=== PATIENT | male | born 1950 | race African-American/Black ===

== ENCOUNTER 2017-09-02 06:29 | Inpatient (IN) | payer MEDICARE ==
[~2017-09-02] VITALS: Ht 188 cm; Wt 83.4 kg
[~2017-09-02 06:29] MED LIST: ASPI1TAB57 PO; ENAL2.5T40 PO; METO25TA3 PO; PLAV75TA29 PO; SIMV40TA PO
[2017-09-02] MEDS ORDERED: METOPROLOL TARTRATE 25 MG TAB PO PRN (07:00)
[2017-09-02] MEDS ORDERED: CHLORHEXIDINE GLUCONATE 2 % 1 PACK (2 CLOTHS) TOPICAL PRN (07:00)
[2017-09-02] MEDS ORDERED: INSULIN HUMAN REGULAR 1,000 UNITS/10 ML VIAL SQ PRN (07:00)
[2017-09-02] MEDS ORDERED: POVIDONE IODINE 5% (ANTISEPSIS KIT) 4 APPLICATIONS EACH NARE PRN (07:00)
[2017-09-02] MEDS ORDERED: SODIUM CHLORID 0.9% 500 ML IV PRN (07:00)
[2017-09-02] MEDS ORDERED: LACTATED RINGER'S 1000 ML IV PRN (07:00)
[2017-09-02] MEDS ORDERED: ceFAZolin 2 GM PREMIX 50 ML IV SCH (07:00)
[2017-09-02] MEDS ORDERED: AMLO10TA2 PO (07:03)
[2017-09-02] MEDS ORDERED: IPRAAER INH (07:03)
[2017-09-02] MEDS ORDERED: IPRASOL INH (07:03)
[2017-09-02] MEDS ORDERED: ATOR40TA16 PO (07:03)
[2017-09-02] MEDS ORDERED: FLUT1INH INH (07:03)
[2017-09-02] MEDS ORDERED: UMEC1AER INH (07:16)
[2017-09-02] MEDS ORDERED: TRIA1SPR5 EACH NARE (07:16)
[2017-09-02 07:32] LABS: PROTHROMBIN TIME - PATIENT 11.3 SEC (9.8-11.6)
[2017-09-02] MEDS ORDERED: ACETAMINOPHEN 1000 MG/100 ML 100 ML IV ONE (07:33)
[2017-09-02] MEDS ORDERED: HYDROmorphone HCL PF 2 MG/ML VIAL ONE (07:33)
[2017-09-02] MEDS ORDERED: MANNITOL INJ 0 ML ONE (10:34)
[2017-09-02] MEDS ORDERED: SUGAMMADEX SODIUM 200 MG/2 ML VIAL IV PUSH ONE ×2 (11:22)
[2017-09-02] MEDS ORDERED: COMBIVENT INH PRN (11:45)
[2017-09-02] MEDS ORDERED: MORPHINE SULFATE 4 MG/ML INJ IV PUSH PRN (11:45)
[2017-09-02] MEDS ORDERED: ONDANSETRON HCL 4 MG/2 ML VIAL IV PUSH PRN (11:45)
[2017-09-02] MEDS ORDERED: LIDOCAINE HCL 1% PF 5 ML SYRINGE OTHER ONE (12:00)
[2017-09-02] MEDS: RESP: ALBUTEROL 2.5 MG/IPRATROPIUM 0.5 MG NEB (SCH) INH ×2 (12:00→21:40)
[2017-09-02] MEDS ORDERED: PHENYLEPH/NS 1000 MCG/10 ML SYR IV ONE (12:00)
[2017-09-02] MEDS ORDERED: SODIUM CHLORIDE 0.9% 20 ML VIAL IV ONE (12:00)
[2017-09-02] MEDS ORDERED: PROPOFOL 200 MG/20 ML AMP IV ONE (12:00)
[2017-09-02] MEDS ORDERED: VECURONIUM BROMIDE 20 MG VIAL IV ONE (12:00)
[2017-09-02] MEDS ORDERED: DEXAMETHASONE SOD PHOS 4 MG/ML VIAL IV ONE (12:00)
[2017-09-02] MEDS ORDERED: ONDANSETRON HCL 4 MG/2 ML VIAL IV PUSH ONE (12:00)
[2017-09-02] MEDS ORDERED: PHENYLEPHRINE HCL 10 MG/ML VIAL IV ONE (12:00)
[2017-09-02] MEDS ORDERED: NORMOSOL R INJ 1,000 ML IV ONE (12:00)
[2017-09-02] MEDS ORDERED: ROCURONIUM INJ 50 MG/5 ML SYRINGE IV PUSH ONE (12:00)
[2017-09-02] MEDS ORDERED: ePHEDrine/NS 25 MG/5 ML SYR IV ONE (12:00)
[2017-09-02] MEDS ORDERED: MIDAZOLAM HCL 2 MG/2 ML VIAL IV ONE (12:00)
[2017-09-02] MEDS ORDERED: DO NOT ADM ANY ANTICOAGULANT DRUGS PRN (13:00)
[2017-09-02 13:13] LABS: AUTOMATED NEUTROPHIL # 8.9 TH/MM3 (1.8-7.7); BASOPHIL % 0.2 % (0.0-2.0); EOSINOPHIL # 0.1 TH/MM3 (0-0.4); EOSINOPHIL % 1.3 % (0.0-4.0); HEMATOCRIT 42.5 % (39.0-51.0); HEMO FLAGS DIFF FINAL; LYMPH % 5.9 % (9.0-44.0); LYMPHOCYTE # 0.6 TH/MM3 (1.0-4.8); MEAN CELL VOLUME 85.8 FL (80.0-100.0); MEAN CORPUSCULAR HEMOGLOBIN 28.1 PG (27.0-34.0); MEAN CORPUSCULAR HGB CONC 32.8 % (32.0-36.0); MONO % 2.4 % (0.0-8.0); NEUT % 90.2 % (16.0-70.0); PLATELET COUNT 166 TH/MM3 (150-450); RED BLOOD COUNT 4.96 MIL/MM3 (4.50-5.90); RED CELL DISTRIBUTION WIDTH 13.8 % (11.6-17.2); WHITE BLOOD COUNT 9.9 TH/MM3 (4.0-11.0)
[2017-09-02] MEDS: SODIUM CHLOR 0.9% 1000 ML INJ 1,000 ML IV SCH ×2 (13:15→20:58)
[2017-09-02 13:33] LABS: BICARBONATE 25.3 MEQ/L (21.0-32.0); POTASSIUM 4.7 MEQ/L (3.5-5.1)
--- NOTE | 2017-09-02 13:39 | MP ---
cc: NAZ HUTTON MD DATE OF SURGERY 09/02/2017 PREOPERATIVE DIAGNOSIS 1. Right upper pole posterior enhancing solid renal mass 2. Lung nodules POSTOPERATIVE DIAGNOSIS 1. Right upper pole posterior enhancing solid renal mass 2. Lung nodules PROCEDURE PERFORMED Right radical robotic nephrectomy. SURGEON Naz Hutton MD ANESTHESIA General COMPLICATIONS None PREOPERATIVE ANTIBIOTICS Ancef 1 grams IV DRAINS A 6-[place] Rose catheter to gravity drainage. SPECIMENS Right kidney for permanent BLOOD LOSS 150 mL FLUIDS One liter of crystalloids DISPOSITION To recovery INDICATIONS The patient is 66-year-old male who was found to have a solid enhancing 2.5 cm right upper pole renal mass. The mass was originally found back in 2011 and has doubled in size over the last couple years. The patient also had some lung nodules as well as a questionable bone lesion, but PET scan confirmed these were not metabolically active. Treatment options were discussed including robotic partial nephrectomy versus radical nephrectomy versus active surveillance versus percutaneous biopsy with cryoablation. The advantages, disadvantages and side effects of each were explained. The patient elected to proceed with robotic partial nephrectomy. In consultation with him, I did explain that due to the location of the tumor being posterior and tucked under his liver, it would be very difficult to remove the tumor and leave the kidney by and may end up losing the entire kidney. Both he and his understood these risks along with the risk of dialysis, renal failure, conversion to open, injury to other organs and they elected to proceed and an informed consent was obtained. DETAILS OF THE PROCEDURE The patient was properly identified, brought back to the operating room, laid supine on the operating table. Proper time-out was performed under the direction of anesthesiology. The patient was then induced under general aesthetic. Preoperatively antibiotics in the form of Ancef two grams IV was given within one hour of the start of the procedure. A Rose catheter was placed under sterile technique. He was then placed in the left lateral decubitus position with the right side up in modified flank position. All pressure points were padded. He was then prepped and draped in a normal sterile surgical fashion. A stab incision was made superior and lateral to the umbilicus and the Veress needle was used to gain access to the intraabdominal cavity. The stab incision was extended approximately 2 cm. Under direct visualization, I then passed the 12 mm long camera port into the intraabdominal cavity. The abdomen was carefully inspected. There was no evidence of any intraabdominal injury and no evidence of bleeding. At this time, I then placed the five remaining ports under direct visualization. This included two 8 mm robotic ports triangulated off of the camera port one handbreadth off the ASIS, the other two fingerbreadths off the subcostal margin. I then placed a 5-mm liver retractor port just in the midline below the xiphoid process. Two 12-mm elementary assistant principal ports were placed as well, one inferior to the umbilicus in the midline and one in between the umbilicus and the liver retractor. Upon placing the port into the intraabdominal cavity, it did go through some tissue that was stuck to the anterior abdominal wall. The camera was then placed in the inferior 12 mm elementary assistant principal port. A laparoscopic retractor was then used to remove this tissue over the port. It appeared to be just some fatty tissue and did not appeared to be mesentery or colon or small intestine. Therefore, I decided to continue with the procedure. The robot arm was then brought in position. I began by taking down the white line of Toldt and reflecting the colon medially to expose the retroperitoneum. The duodenum was then Kocherized. He had very thin tissues inside. Once this was done, this exposed the IVC, however he did have a significantly enlarged liver. Under direct visualization, the liver retractor was placed in the abdominal cavity and locked on the anterior abdominal wall on the side. This mobilized the liver cephalad. There was no evidence of any trauma to the liver by passing the retractor. At this point, I then divided the attachments between the liver and the kidney which help free up the kidney. I was then able to spare the right gonadal vein. I marched up the psoas muscle to the level of the hilum. Both the artery and vein were carefully dissected out circumferentially. I then mobilized the lateral part of the kidney and the superior portion of the kidney. Part of the tumor was visualized. It appeared to be very posterior which corresponded to the CT scan, but also approaching the vessels on the backside. I did not think it was possible to remove the tumor safely without causing significant damage to the renal vessels and possibly compromising margins, therefore, I called out to the and talked to her about the necessity to remove the whole kidney and she agreed. Therefore, the artery and vein were then taken separately with an endovascular stapler. The robotic vascular sealer was then used to remove the upper pole attachments. At this point, the entire kidney was freed except the ureter remained. This was carefully dilated and taken with the robotic vessel sealer. At this point, the kidney was completely mobilized. It was placed in an EndoCatch bag for later removal. The renal fossa including hilum appeared to be dry. The renal peritoneum was dropped down to 7 mmHg. There was no evidence of any bleeding. Three grams of Caro were then placed. At this time, the kidney in the EndoCatch bag was extracted through the right lower quadrant incision. It was closed with a running 1-0 PDS. A second look was performed. There was no evidence of any bleeding within the intraabdominal cavity. The underside of the closing incision was free of bowel. Therefore, all ports were removed under direct visualization. The skin incision was then closed with 4-0 Monocryl. This concluded the procedure. The patient was extubated and sent to recovery in stable condition without immediate complication. He will be transferred to the floor for routine postoperative care. The sponge, needle, and instrument counts were correct at the end of the case. MD MADISYN Mcconnell/LEESA /12:52 PM /1:17 PM
[2017-09-02] MEDS ORDERED: SODIUM CHLORIDE 0.9% INJ 10 ML ONE (14:35)
[2017-09-02] MEDS: PANTOPRAZOLE SODIUM 40 MG VIAL IV PUSH SCH (14:50)
--- NOTE | 2017-09-02 15:37 | PD.CONS ---
HPI Service [facility] Hospitalists Consult Requested By Dr. Ruff Reason for Consult Medical management Primary Care Physician Lucretia Cason MD Diagnoses: (1) Renal mass, right (2) Hypertension (3) Hyperlipidemia (4) Coronary artery disease (5) Acute kidney injury History of Present Illness The patient is a 66-year-old male who had right radical robotic nephrectomy today secondary to a right renal mass. Hospitalist consultation was requested for medical management. The patient reports history of coronary artery disease, hypertension, hyperlipidemia. He states that he feels "pretty good" at this point following surgery. No pain currently. Denies chest pain, dyspnea, nausea, vomiting. Review of Systems Constitutional: DENIES: Fever, Chills, Night Sweats Eyes: DENIES: Blurred vision, Vision loss Ears, nose, mouth, throat: DENIES: Hearing loss Respiratory: DENIES: Cough, Wheezing, Sputum production, Shortness of breath Cardiovascular: DENIES: Chest pain, Palpitations, Dyspnea on Exertion, Lower Extremity Edema Gastrointestinal: DENIES: Abdominal pain, Constipation, Diarrhea, Nausea, Vomiting Genitourinary: DENIES: Urinary frequency, Urinary incontinence, Urgency, Hematuria, Dysuria, Nocturia Musculoskeletal: DENIES: Joint pain, Muscle aches Integumentary: DENIES: Pruritus, Rash Hematologic/lymphatic: DENIES: Bruising Neurologic: DENIES: Headache Past Family Social History Allergies: Coded Allergies: No Known Allergies (Unverified , 07/07/12) Past Medical History Coronary artery disease Hyperlipidemia Hypertension COPD Past Surgical History Cardiac catheterization with stent placement Knee arthroscopy Reported Medications Combivent 4 times a day as needed DuoNeb every 4 hours as needed Anoro Ellipta inhaler daily Atorvastatin 40 mg daily at bedtime Metoprolol 25 mg twice a day Amlodipine 10 mg daily Enalapril 2.5 mg twice a day Aspirin 81 mg daily Nasacort daily Family History Diabetes Hypertension Social History Quit smoking in 2011. Reports occasional alcohol use. Denies illicit drug use. Physical Exam Vital Signs Vital Signs Date Time Temp Pulse Resp B/P (MAP) Pulse Ox O2 Delivery O2 Flow Rate FiO2 09/02/17 12:22 96.4 68 15 155/87 (109) 99 Nasal Cannula 2 09/02/17 07:22 98.1 63 20 146/89 (108) 97 Physical Exam GENERAL: Well-nourished, well-developed male in no acute distress. HEENT: Normocephalic, atraumatic. Pupils equal, round and reactive. Extraocular movements intact. No scleral icterus. No injection or drainage. Oropharynx is clear. Mucous membranes are moist. CARDIOVASCULAR: Regular rate and rhythm without murmurs, gallops, or rubs. RESPIRATORY: Clear to auscultation. No wheezes, rales, or rhonchi. Breathing is non-labored. GASTROINTESTINAL: Abdomen soft, non-tender, nondistended. EXTREMITIES: No lower extremity edema. No calf tenderness. PSYCH: Alert, somewhat confused. Answers questions appropriately. Laboratory Laboratory Tests Test 09/02/17 06:55 09/02/17 12:57 Prothrombin Time 11.3 Prothromb Time International Ratio 1.0 White Blood Count 9.9 Red Blood Count 4.96 Hemoglobin 14.0 Hematocrit 42.5 Mean Corpuscular Volume 85.8 Mean Corpuscular Hemoglobin 28.1 Mean Corpuscular Hemoglobin Concent 32.8 Red Cell Distribution Width 13.8 Platelet Count 166 Mean Platelet Volume 8.4 Neutrophils (%) (Auto) 90.2 Lymphocytes (%) (Auto) 5.9 Monocytes (%) (Auto) 2.4 Eosinophils (%) (Auto) 1.3 Basophils (%) (Auto) 0.2 Neutrophils # (Auto) 8.9 Lymphocytes # (Auto) 0.6 Monocytes # (Auto) 0.2 Eosinophils # (Auto) 0.1 Basophils # (Auto) 0.0 CBC Comment DIFF FINAL Differential Comment Blood Urea Nitrogen 12 Creatinine 1.45 Random Glucose 154 Calcium Level 8.4 Sodium Level 137 Potassium Level 4.7 Chloride Level 105 Carbon Dioxide Level 25.3 Anion Gap 7 Estimat Glomerular Filtration Rate 59 Result Diagram: 09/02/17 1257 09/02/17 1257 Assessment and Plan Assessment and Plan 1. Right renal mass: Status post right radical robotic nephrectomy. Management per urology. 2. Acute kidney injury: Monitor BUN and creatinine. Continue IV fluids. 3. Hypertension: Continue metoprolol, enalapril, amlodipine. 4. COPD: Oxygen as needed. Bronchodilators. 5. Coronary artery disease: Asymptomatic. Continue home medications. 6. Hyperlipidemia: Continue statin. 7. DVT prophylaxis: DENNYS Dias. Javon Alvarez MD Sep 02, 2017 15:37
[2017-09-02 16:00] VITALS: BP 139/79; PULSE 74; RESP 17; TEMP 98.1; O2SAT 91
[2017-09-02] MEDS ORDERED: TIOTROPIUM BROMIDE 18 MCG INH INH PRN (16:00)
[2017-09-02] MEDS ORDERED: ALBUTEROL SULFATE 90 MCG/ACT HFA 8 GM INHALER INH PRN (16:00)
[2017-09-02] MEDS: ACETAMINOPHEN 1000 MG/100 ML 100 ML IV SCH ×2 (16:50→20:57)
[2017-09-02 20:00] VITALS: BP 151/75; PULSE 75; RESP 18; TEMP 96.4; O2SAT 94
[2017-09-02] MEDS: DOCUSATE SODIUM 100 MG CAP PO SCH (20:59)
[2017-09-02] MEDS: ATORVASTATIN 40 MG TAB PO SCH (20:59)
[2017-09-02 21:47] VITALS: O2SAT 94
[2017-09-03] VITALS (7 sets, daily range): BP systolic 130–173; BP diastolic 73–87; PULSE 77–89; RESP 17–18; TEMP 96.7–97.9; O2SAT 91–97
[2017-09-03] MEDS: RESP: ALBUTEROL 2.5 MG/IPRATROPIUM 0.5 MG NEB (SCH) INH ×6 (04:00→20:33)
[2017-09-03] MEDS: ACETAMINOPHEN 1000 MG/100 ML 100 ML IV SCH ×2 (06:03→09:18)
[2017-09-03 07:00] LABS: HEMATOCRIT 41.8 % (39.0-51.0); MEAN CELL VOLUME 85.8 FL (80.0-100.0); MEAN CORPUSCULAR HEMOGLOBIN 28.6 PG (27.0-34.0); MEAN CORPUSCULAR HGB CONC 33.4 % (32.0-36.0); PLATELET COUNT 169 TH/MM3 (150-450); RED BLOOD COUNT 4.87 MIL/MM3 (4.50-5.90); RED CELL DISTRIBUTION WIDTH 13.7 % (11.6-17.2); REVIEW FLAG FINAL; WHITE BLOOD COUNT 9.1 TH/MM3 (4.0-11.0)
[2017-09-03 07:02] LABS: BICARBONATE 24.6 MEQ/L (21.0-32.0); POTASSIUM 4.7 MEQ/L (3.5-5.1)
[2017-09-03] MEDS: DOCUSATE SODIUM 100 MG CAP PO SCH ×2 (09:00→20:22)
[2017-09-03] MEDS: UMECLIDINIUM 62.5 MCG/VILANTEROL 25 MCG INHALER INH SCH (09:00)
[2017-09-03] MEDS: FLUTICASONE PROPIONATE 50 MCG/ACT 16 GM NASAL SPRAY NASAL SCH (09:00)
[2017-09-03] MEDS: METOPROLOL TARTRATE 25 MG TAB PO SCH ×2 (09:21→20:20)
[2017-09-03] MEDS: ENALAPRIL MALEATE 10 MG TAB PO SCH ×2 (09:21→20:20)
[2017-09-03] MEDS: SODIUM CHLOR 0.9% 1000 ML INJ 1,000 ML IV SCH ×2 (11:20→19:45)
[2017-09-03] MEDS ORDERED: oxyCODONE/ACETAMINOPHEN 5 MG/325 MG TAB PO PRN (12:30)
--- NOTE | 2017-09-03 12:34 | HHI.PR ---
Subjective Patient symptoms today Has minimal pain. Ambulating. tolerating clears. Denies CP/SOB. Voiding on own. Denies fevers. Denies flatus. Objective Vital Signs Vital Signs Date Time Temp Pulse Resp B/P (MAP) Pulse Ox O2 Delivery O2 Flow Rate FiO2 09/03/17 12:00 96.7 77 18 168/80 (109) 91 09/03/17 08:30 92 21 09/03/17 08:00 97.3 84 17 160/78 (105) 94 09/03/17 00:00 97.3 80 17 130/73 (92) 92 09/02/17 21:47 94 Nasal Cannula 2.00 09/02/17 20:00 96.4 75 18 151/75 (100) 94 09/02/17 16:00 98.1 74 17 139/79 (99) 91 09/02/17 15:00 97.8 72 17 126/72 (90) 98 Nasal Cannula 2 09/02/17 14:30 63 17 128/70 (89) 99 Nasal Cannula 2 09/02/17 14:15 63 15 128/70 (89) 99 Nasal Cannula 2 09/02/17 14:00 97.6 69 16 138/77 (97) 98 Nasal Cannula 2 09/02/17 13:45 61 16 122/69 (86) 98 Nasal Cannula 2 09/02/17 13:30 61 16 139/74 (95) 98 Nasal Cannula 2 09/02/17 13:15 97.3 57 16 127/71 (89) 99 Nasal Cannula 2 09/02/17 13:00 58 16 133/75 (94) 99 Nasal Cannula 2 09/02/17 12:45 59 16 138/80 (99) 99 Nasal Cannula 2 Intake & Output 09/03/17 09/03/17 07:00 19:00 Intake Total 1016 ml Output Total 2000 ml Balance -984 ml Intake Oral 240 ml IV Total 776 ml Output Urine Total 2000 ml Result Diagram: 09/03/1760409/03/17604 Objective Remarks NAD. A/O x 3 non labored respirations RRR abd soft, mild distention, NT. inc c/d/i Ext NT. no c/c/e Procedures Right Robotic Radical Nephrectomy, 09/02/2017 Medications and IVs Current Medications Medications (Trade) Dose Ordered Sig/Jake Route Start Time Stop Time Status Last Admin (Lopressor) 25 mg LACE INSPECTOR PRN PO 09/02/17 07:00 09/05/17 06:59 (Betadine 5% Antisepsis Kit) 1 applic LACE INSPECTOR PRN EACH NARE 09/02/17 07:00 09/05/17 06:59 (Chlorhexidine 2% Cloth) 3 pack LACE INSPECTOR PRN TOPICAL 09/02/17 07:00 09/05/17 06:59 (NovoLIN R INJ) See Protocol Table ... LACE INSPECTOR PRN SQ 09/02/17 07:00 09/05/17 06:59 (Colace) 100 mg BID PO 09/02/17 21:00 09/02/17 20:59 Acetaminophen 100 ml @ 400 mls/hr Q6H IV 09/02/17 16:00 09/03/17 09:18 (Roxicodone) 10 mg Q4H PRN PO 09/02/17 11:45 09/03/17 09:27 (Roxicodone) 5 mg Q4H PRN PO 09/02/17 11:45 (Protonix Inj) 40 mg Q24H IV PUSH 09/02/17 14:00 09/02/17 14:50 (Zofran Inj) 4 mg Q6HR PRN IV PUSH 09/02/17 11:45 (Morphine Inj) 4 mg Q3H PRN IV PUSH 09/02/17 11:45 Sodium Chloride 1,000 ml @ 125 mls/hr Q8H IV 09/02/17 11:45 09/03/17 11:20 (Norvasc) 10 mg DAILY PO 09/03/17 09:00 09/03/17 09:21 (Lipitor) 40 mg HS PO 09/02/17 21:00 09/02/17 20:59 (Vasotec) 20 mg BID PO 09/03/17 09:00 09/03/17 09:21 (Duoneb Neb) 1 ampule Q4HR NEB INH 09/02/17 12:00 09/03/17 08:27 (Lopressor) 25 mg BID PO 09/03/17 09:00 09/03/17 09:21 (Flonase Nasir Spr) 1 spray DAILY NASAL 09/03/17 09:00 (Spiriva Inh) 18 mcg DAILY PRN INH 09/02/17 16:00 (Proair Hfa Inh) 1 puff QID PRN INH 09/02/17 16:00 Miscellaneous Information ALL NURSING DEPARTME... UNSCH PRN .XX 09/02/17 13:00 09/03/17 12:59 Assessment and Plan Assessment and Plan POD #1 s/p Right Robotic Radical Nephrectomy -Clinically doing well. -Hgb stable. -Creatinine elevated as expected. Making good urine. Repeat BMP in A.M. -Advance diet -Change pain meds -Ambulate, IS -likely d/c tomorrow David Ruff MD Sep 03, 2017 12:34
[2017-09-03] MEDS ORDERED: DOCU1CAP39 PO (12:43)
[2017-09-03] MEDS ORDERED: OXYC1TAB63 PO (12:43)
[2017-09-03] MEDS: PANTOPRAZOLE SODIUM 40 MG VIAL IV PUSH SCH (13:21)
--- NOTE | 2017-09-03 13:40 | HHI.PR ---
Subjective Remarks Follow-up renal insufficiency, hypertension, COPD. The patient states that he feels much better today. Pain is reasonably well controlled. No nausea or vomiting. No chest pain or dyspnea. Objective Vitals Vital Signs Date Time Temp Pulse Resp B/P (MAP) Pulse Ox O2 Delivery O2 Flow Rate FiO2 09/03/17 12:00 96.7 77 18 168/80 (109) 91 09/03/17 08:30 92 21 09/03/17 08:00 97.3 84 17 160/78 (105) 94 09/03/17 00:00 97.3 80 17 130/73 (92) 92 09/02/17 21:47 94 Nasal Cannula 2.00 09/02/17 20:00 96.4 75 18 151/75 (100) 94 09/02/17 16:00 98.1 74 17 139/79 (99) 91 09/02/17 15:00 97.8 72 17 126/72 (90) 98 Nasal Cannula 2 09/02/17 14:30 63 17 128/70 (89) 99 Nasal Cannula 2 09/02/17 14:15 63 15 128/70 (89) 99 Nasal Cannula 2 09/02/17 14:00 97.6 69 16 138/77 (97) 98 Nasal Cannula 2 09/02/17 13:45 61 16 122/69 (86) 98 Nasal Cannula 2 I/O 09/02/17 09/02/17 09/02/17 09/03/17 09/03/17 09/03/17 07:00 15:00 23:00 07:00 15:00 23:00 Intake Total 1260 ml 340 ml 916 ml Output Total 400 ml 2000 ml Balance 860 ml 340 ml -1084 ml Intake Oral 240 ml 240 ml IV Total 260 ml 100 ml 676 ml Other 1000 ml Output Urine Total 250 ml 2000 ml Estimated Blood Loss 150 ml Result Diagram: 09/03/1760409/03/17604 Objective Remarks General: No acute distress. Heart: Regular rate and rhythm. No murmur. Lungs: Clear to auscultation bilaterally. No wheezes, rales, or rhonchi. Breathing is nonlabored. Abdomen: Soft, nontender, nondistended. Extremities: No lower extremity edema. Psych: Alert and oriented. Procedures 09/02/17 right nephrectomy Urinary Catheter: No Vascular Central Line Catheter: No A/P Problem List: (1) Renal mass, right ICD Code: N28.89 - Other specified disorders of kidney and ureter (2) Hypertension ICD Code: I10 - Essential (primary) hypertension (3) Hyperlipidemia ICD Code: E78.5 - Hyperlipidemia, unspecified (4) Coronary artery disease ICD Code: I25.10 - Atherosclerotic heart disease of [place] coronary artery without angina pectoris (5) Acute kidney injury ICD Code: N17.9 - Acute kidney failure, unspecified Assessment and Plan 1. Right renal mass: Status post right radical robotic nephrectomy. Management per urology. 2. Acute kidney injury: BUN and creatinine trending up. Continue IV fluids. Nephrology consult requested. 3. Hypertension: Continue metoprolol, enalapril, amlodipine. 4. COPD: Oxygen as needed. Bronchodilators. 5. Coronary artery disease: Asymptomatic. Continue home medications. 6. Hyperlipidemia: Continue statin. 7. DVT prophylaxis: DENNYS Dias. Discharge Planning Possible discharge tomorrow per urology. Javon Alvarez MD Sep 03, 2017 13:40
--- NOTE | 2017-09-03 14:40 | RADRPT ---
EXAM DATE/TIME: 09/03/2017 13:59 [facility] COMPARISON: No previous studies available for comparison. INDICATIONS : Shortness of breath. MEDICAL HISTORY : Chronic obstructive pulmonary disease. SURGICAL HISTORY : None. ENCOUNTER: Initial ACUITY: 1 day PAIN SCORE: 0/10 LOCATION: Bilateral chest FINDINGS: There is a right pneumothorax with parietal and visceral pleural by 4 cm at the apex and 1 cm at the base. Left lung is clear. CONCLUSION: Right pneumothorax as described above. Cyril Lira MD FACR on September 03, 2017 at 14:34 Board Certified Radiologist. This report was verified electronically.
--- NOTE | 2017-09-03 16:02 | PD.CONS ---
cc: Haile Arriaga MD HPI Service General Surgery Consult Requested By Dr. Ruff Reason for Consult Patient with pneumothorax; Evaluate for chest tube placement Primary Care Physician Lucretia Cason MD History of Present Illness This is a 66-year-old male who underwent a right nephrectomy by Dr. Ruff yesterday. The patient was tolerating clear liquids and clinically doing well. His diet was advanced and there were plans to possibly discharge the patient tomorrow if uneventful day and night. This afternoon the patient developed shortness of breath and a chest x-ray was obtained which revealed a right pneumothorax. The nurse notified Dr. Alvarez and a consult was obtained to interventional radiology for chest tube placement. Review of Systems Constitutional: DENIES: Fatigue, Change in appetite Endocrine: DENIES: Polydipsia, Polyuria, Polyphagia Eyes: DENIES: Diplopia Ears, nose, mouth, throat: DENIES: Hearing loss Respiratory: COMPLAINS OF: Shortness of breath Cardiovascular: DENIES: Palpitations Gastrointestinal: DENIES: Abdominal pain Genitourinary: DENIES: Urinary frequency Musculoskeletal: DENIES: Joint pain Integumentary: DENIES: Abnormal pigmentation Hematologic/lymphatic: DENIES: Bruising Immunologic/allergic: DENIES: Eczema Neurologic: DENIES: Headache, Localized weakness Psychiatric: DENIES: Mood changes, Depression, Hallucinations Past Family Social History Past Medical History Coronary artery disease Hyperlipidemia Hypertension COPD Past Surgical History Cardiac catheterization with stent placement Reported Medications DuoNeb Atorvastatin Metoprolol Amlodipine Enalapril Aspirin Nasacort Allergies: Coded Allergies: No Known Allergies (Unverified , 07/07/12) Active Ordered Medications Current Medications Medications (Trade) Dose Ordered Sig/Jake Route Start Time Stop Time Status Last Admin (Lopressor) 25 mg OPERATIONS MANAGER STATION PRN PO 09/02/17 07:00 09/05/17 06:59 (Betadine 5% Antisepsis Kit) 1 applic OPERATIONS MANAGER STATION PRN EACH NARE 09/02/17 07:00 09/05/17 06:59 (Chlorhexidine 2% Cloth) 3 pack OPERATIONS MANAGER STATION PRN TOPICAL 09/02/17 07:00 09/05/17 06:59 (NovoLIN R INJ) See Protocol Table ... OPERATIONS MANAGER STATION PRN SQ 09/02/17 07:00 09/05/17 06:59 (Colace) 100 mg BID PO 09/02/17 21:00 09/02/17 20:59 (Protonix Inj) 40 mg Q24H IV PUSH 09/02/17 14:00 09/03/17 13:21 (Zofran Inj) 4 mg Q6HR PRN IV PUSH 09/02/17 11:45 (Morphine Inj) 4 mg Q3H PRN IV PUSH 09/02/17 11:45 Sodium Chloride 1,000 ml @ 125 mls/hr Q8H IV 09/02/17 11:45 09/03/17 11:20 (Norvasc) 10 mg DAILY PO 09/03/17 09:00 09/03/17 09:21 (Lipitor) 40 mg HS PO 09/02/17 21:00 09/02/17 20:59 (Vasotec) 20 mg BID PO 09/03/17 09:00 09/03/17 09:21 (Duoneb Neb) 1 ampule Q4HR NEB INH 09/02/17 12:00 09/03/17 12:55 (Lopressor) 25 mg BID PO 09/03/17 09:00 09/03/17 09:21 (Flonase Nasir Spr) 1 spray DAILY NASAL 09/03/17 09:00 (Spiriva Inh) 18 mcg DAILY PRN INH 09/02/17 16:00 (Proair Hfa Inh) 1 puff QID PRN INH 09/02/17 16:00 (Percocet 5-325 Mg) 2 tab Q4H PRN PO 09/03/17 12:30 (Percocet 5-325 Mg) 1 tab Q4H PRN PO 09/03/17 12:30 Family History Noncontributory Social History Denies tobacco use Denies ETOH use Denies illicit drug use Physical Exam Vital Signs Vital Signs Date Time Temp Pulse Resp B/P (MAP) Pulse Ox O2 Delivery O2 Flow Rate FiO2 09/03/17 12:00 96.7 77 18 168/80 (109) 91 09/03/17 08:30 92 21 09/03/17 08:00 97.3 84 17 160/78 (105) 94 09/03/17 00:00 97.3 80 17 130/73 (92) 92 09/02/17 21:47 94 Nasal Cannula 2.00 09/02/17 20:00 96.4 75 18 151/75 (100) 94 09/02/17 16:00 98.1 74 17 139/79 (99) 91 Physical Exam GENERAL: Up to chair in no acute distress. SKIN: Warm and dry. HEAD: Atraumatic. Normocephalic. EYES: Pupils equal and round. No scleral icterus. No injection or drainage. ENT: No nasal bleeding or discharge. Mucous membranes pink and moist. NECK: Trachea midline. CARDIOVASCULAR: Regular rate and rhythm. RESPIRATORY: No accessory muscle use. Clear to auscultation. Breath sounds equal bilaterally. RIGHT chest tube in place to wall suction. GASTROINTESTINAL: Abdomen soft, non-tender, nondistended. Lap sites c/d/i. MUSCULOSKELETAL: Extremities without clubbing, cyanosis, or edema. No obvious deformities. NEUROLOGICAL: Awake and alert. No obvious cranial nerve deficits. Motor grossly within normal limits. Five out of 5 muscle strength in the arms and legs. Normal speech. PSYCHIATRIC: Appropriate mood and affect; insight and judgment normal. Laboratory Laboratory Tests Test 09/03/17 06:05 White Blood Count 9.1 Red Blood Count 4.87 Hemoglobin 14.0 Hematocrit 41.8 Mean Corpuscular Volume 85.8 Mean Corpuscular Hemoglobin 28.6 Mean Corpuscular Hemoglobin Concent 33.4 Red Cell Distribution Width 13.7 Platelet Count 169 Mean Platelet Volume 9.2 Blood Urea Nitrogen 15 Creatinine 1.71 Random Glucose 130 Calcium Level 8.8 Sodium Level 137 Potassium Level 4.7 Chloride Level 106 Carbon Dioxide Level 24.6 Anion Gap 6 Estimat Glomerular Filtration Rate 49 Result Diagram: 09/05/17 0600 09/05/17 0600 Imaging Last 48 hours Impressions Chest X-Ray 09/03/17 0000 Signed Impressions: Service Date/Time: Sunday, September 03, 2017 13:59 - CONCLUSION: Right pneumothorax as described above. Cyril Lira MD FACR Assessment and Plan Assessment and Plan 66 year old male POD1 RIGHT radical nephrectomy; with RIGHT PTX -s/p IR placed chest tube -Continue CT to wall suction -CXR pending -Regular diet -Pain control -Thank you for this consult; We will be available as needed Discussed Condition With Dr. Arriaga RN Keiry Mr. Crowe + family Attending Statement patient seen at bedside ptx plan for IR chest tube chest tube sxn recheck cxr Attestation The exam, history, and the medical decision-making described in the above note were completed with the assistance of the mid-level provider. I reviewed and agree with the findings presented. I attest that I had a [id number] encounter with the patient on the same day, and personally performed and documented my assessment and findings in the medical record. Niesha Mcgarry Sep 03, 2017 16:02 Haile Arriaga MD Sep 06, 2017 21:09
--- NOTE | 2017-09-03 16:55 | PD.RAD ---
Post Procedure Progress Note Pre Procedure Diagnosis: (1) Pneumothorax on right Post Procedure Diagnosis: (1) Pneumothorax on right Procedure Date: Sep 03, 2017 Supervising Radiologist: Carroll Frederick Proceduralist/Assist: Diane Madison RT(R)(), RT Julia(R)(CV) Anesthesia: Local Plan of Activity Patient to Unit: Nursing Unit Patient Condition: Good See PACS Report for procedural detail/treatment Drainage Procedure Procedure 1 Imaging Guidance: Fluoroscopy Procedure Type: Chest Tube Non-Tunneled Procedure: Placement Pakistani: 10 Drainage: Pleurovac (40cm) Carroll Frederick MD Sep 03, 2017 16:55
--- NOTE | 2017-09-03 18:21 | RADRPT ---
EXAM DATE/TIME: 09/03/2017 17:01 [facility] COMPARISON: CHEST PA & LAT, September 03, 2017, 13:59. CHEST TUBE PLACEMENT, RIGHT, September 03, 2017, 17:17. INDICATIONS : Right chest tube placement. MEDICAL HISTORY : Chronic obstructive pulmonary disease. SURGICAL HISTORY : Nephrectomy ENCOUNTER: Initial ACUITY: 1 day PAIN SCORE: 7/10 LOCATION: Right upper chest FINDINGS: There is a right-sided chest tube in place. A significant pneumothorax is not seen. There is bullous change at the right upper lung. There is hazy density at the right base with silhouetting of the righ t hemidiaphragm. The left lung is clear. The heart size is normal. There is air in the superficial so ft tissues of the right lateral chest and abdomen. CONCLUSION: 1. Right chest tube without pneumothorax. 2. Mild atelectasis or consolidation at the right base. Eduard Lucia MD on September 03, 2017 at 18:17 Board Certified Radiologist. This report was verified electronically.
[2017-09-03] MEDS: oxyCODONE/ACETAMINOPHEN 5 MG/325 MG TAB PO PRN (20:20)
[2017-09-03] MEDS: ATORVASTATIN 40 MG TAB PO SCH (20:20)
--- NOTE | 2017-09-03 20:23 | MB ---
cc: NATACHA HERMAN MD DATE OF CONSULTATION: 09/03/2017. REASON FOR CONSULTATION: Post nephrectomy with elevated creatinine. HISTORY OF PRESENT ILLNESS: This is a 66-year-old male with past medical history of hypertension, hyperlipidemia, history of COPD, and ischemic heart disease who was admitted for elective right nephrectomy for possible right renal mass. I was called to see the patient because of elevated creatinine. The patient underwent the surgery which was done yesterday, and postoperatively the creatinine went up to 1.4. His baseline was 1.0 to 1.2 and his GFR before the surgery was anywhere from 70 to 91 and this was in 2011. Now the creatinine has gone up to 1.7 today. The patient had a Rose catheter which was removed this morning. He has been passing urine. The patient was diagnosed with a pneumothorax and he has just the chest tube done by the interventional radiology. The patient has shortness of breath and pain on breathing but this improved after the chest tube. He denies any previous history of hematuria. There is no history of renal stone. The renal mass was diagnosed incidentally when the scan was done for some other reason. PAST MEDICAL HISTORY: 1. Hypertension. 2. Hyperlipidemia. 3. Ischemic heart disease. 4. Chronic obstructive pulmonary disease. PAST SURGICAL HISTORY: 1. Cardiac catheterization with stent placement. 2. History of knee arthroscopy, he just has a right nephrectomy and has a right-sided chest tube put in for pneumothorax. REVIEW OF SYSTEMS: He denies any headache, dizziness or blurring of vision. He has still some shortness of breath but it is better than before and he has mild right-sided chest pain when he takes a deep breath. There is no nausea or vomiting. He has some abdominal distention and after the Rose catheter was removed, he was able to urinate and pass urine two or three times. There is no history of dysuria or hematuria. He denies any history of kidney stones. SOCIAL HISTORY: The patient has a past history of smoking. He occasionally drinks alcoholic beverages. FAMILY HISTORY: His family history is noncontributory. ALLERGIES: HE HAS NO KNOWN DRUG ALLERGIES. MEDICATIONS: He currently is on: 1. Normal saline at 125/hour. 2. Vasotec 20 milligrams twice a day. 3. Colace 100 milligrams twice a day. 4. Lopressor 25 milligrams twice a day. 5. Norvasc 10 milligrams once a day. 6. Lipitor 40 milligrams at bedtime. 7. DuoNeb nebulizer. 8. Protonix 40 milligrams q. 24 hours. 9. Metoprolol PRN. 10. Novolin PRN. 11. Percocet PRN. PHYSICAL EXAMINATION: GENERAL: On examination, the patient is awake and alert and he is sitting in the chair not in acute distress. VITAL SIGNS: His last blood pressure was 168/80, temperature 96.7, oxygen saturation 91% to 92%. HEAD, EYES, EARS, NOSE, THROAT: The pupils are mid-constricted. Nonicteric sclerae. Conjunctivae are normal. NECK: The neck is supple. JVD is not elevated. LUNGS: The patient has bilateral decreased air entry with occasional wheezing. HEART: S1 and S2 regular rhythm. ABDOMEN: Abdomen distended, soft and lax. There are kenyon of laparoscopic surgery. Bowel sounds positive. EXTREMITIES: There is mild edema in the legs. INVESTIGATIONS: WBC count is 9.1, hemoglobin 14.0, platelet count of 169,000, neutrophils 90.2%. Sodium 137, potassium 4.7, chloride 106, bicarbonate 24.6, BUN 15, creatinine 1.71, glucose 130, calcium is 8.8. INR is 1.0. There is no urinalysis done. IMAGING STUDIES: The patient had a chest x-ray done which shows that he has right pneumothorax. ASSESSMENT AND PLAN: 1. Post right nephrectomy for the renal mass. 2. Possible some acute kidney injury. 3. Right pneumothorax. 4. Hypertension. 5. History of ischemic heart disease. The patient had a right nephrectomy done yesterday. There is some worsening of the creatinine, possibly related to this nephrectomy and most likely the creatinine stabilized now. He has been nonoliguric. His blood pressure is stable and a little bit on the higher side and just has a chest tube placed. Continue the hydration and follow the urine output and the BUN and creatinine. Avoid any nephrotoxins. Thank you for the consultation, and I will follow the patient while he is in the hospital. MD KRISTEL Melissa/BEAR /5:37 PM /8:13 PM
--- NOTE | 2017-09-03 21:25 | MB ---
cc: Maru EVANS M.D. DATE OF CONSULTATION 09/03/2017 HISTORY The patient is a 66-year-old black male who had a robotic nephrectomy yesterday for probable renal cell cancer. Pathology is pending. He was doing well today, was actually up and around, was complaining of shortness of breath and chest x-ray was ordered. He had about a 40% right pneumothorax. Since I do not see any evidence in examining him that he has had any lines on that side I presume this was a spontaneous pneumothorax related to his underlying COPD. He has been treated by a registered nurse teacher in [place] for the last several years and has been on Anoro and Combivent at home. He has not required oxygen. He has never been hospitalized for this. He had about a 40 pack-year smoking history but quit smoking several years ago when he had an CA and two stents. At the time of this interview he is awake, alert, comfortable, O2 sats of 95% on 2 liters. He has had no unusual cough or congestion. There has been no recorded fever. PAST MEDICAL HISTORY 1. Coronary artery disease status post two stents. 2. Arthroscopic surgery on his knee. 3. Hypertension. 4. COPD. FAMILY HISTORY Positive for diabetes, hypertension. SOCIAL HISTORY and living with his Stephanie who is here in the room with him. No excessive alcohol use or illicit drug use. Smoking as noted, about 40 pack-years. REVIEW OF SYSTEMS A little discomfort where the chest tube was inserted otherwise breathing is fine. PHYSICAL EXAMINATION VITAL SIGNS: 97, pulse is 80, respirations 18, O2 sat 95%, blood pressure 150/78. HEENT: Sclerae anicteric. CHEST: Right-sided chest tube catheter in place in the right upper anterior chest. No air leak visible. Lungs are clear. Heart sounds are regular. No harsh murmur. ABDOMEN: Soft. EXTREMITIES: No edema. LABORATORY DATA White count is 9100. Hemoglobin 14. BUN is 15, creatinine 1.7. DISCUSSION Mr. Crowe has had a spontaneous pneumothorax on the right. Interventional radiology inserted a tube with re-expansion of the right lung and currently no air leak. He is doing very well clinically. I am going to put him on aerosol therapy three times a day to clear congestion and I have encouraged him to use incentive spirometer. Radiology has already ordered a follow-up chest x-ray in the morning. Further diagnostic and/or therapeutic intervention will depend on his ongoing clinical course. R. MD DOMINICK Jean/KK /6:36 PM /9:16 PM
[2017-09-04] VITALS (7 sets, daily range): BP systolic 131–164; BP diastolic 74–91; PULSE 78–92; RESP 17–19; TEMP 95.3–99.5; O2SAT 91–96
[2017-09-04] MEDS: oxyCODONE/ACETAMINOPHEN 5 MG/325 MG TAB PO PRN ×3 (02:16→20:49)
[2017-09-04] MEDS: SODIUM CHLOR 0.9% 1000 ML INJ 1,000 ML IV SCH ×3 (05:23→20:53)
--- NOTE | 2017-09-04 07:21 | RADRPT ---
EXAM DATE/TIME: 09/04/2017 06:37 [facility] COMPARISON: CHEST EXPIRATION ONLY, September 03, 2017, 17:01. INDICATIONS : Short of breath, evaluate chest tube and pneumothorax on right side MEDICAL HISTORY : Renal cell carcinoma. Cardiovascular disease. SURGICAL HISTORY : Nephrectomy, right. Coronary artery stent. chest tube ENCOUNTER: Subsequent ACUITY: 3 days PAIN SCORE: 2/10 LOCATION: Right chest FINDINGS: A single frontal expiratory view of the chest was performed. A right-sided apical chest you in stable position. The bones of the thorax. Mild lesions remains evident in the right lung base characteristic of a small effusion and mild air s pace disease. A nodular densities identified in the right suprahilar region. The left lung is clear. Heart and mediastinal structures are stable. CONCLUSION: 1. No evidence of right-sided pneumothorax. 2. 1 cm right suprahilar nodule. 3. Stable right chest tube. 4. Mild right basilar opacity characteristic of airspace disease and small effusions. James Vasquez MD on September 04, 2017 at 7:15 Board Certified Radiologist. This report was verified electronically.
[2017-09-04] MEDS: RESP: ALBUTEROL 2.5 MG/IPRATROPIUM 0.5 MG NEB (SCH) INH ×3 (08:58→20:13)
[2017-09-04 09:20] LABS: BICARBONATE 24.9 MEQ/L (21.0-32.0); POTASSIUM 4.4 MEQ/L (3.5-5.1)
[2017-09-04] MEDS: METOPROLOL TARTRATE 25 MG TAB PO SCH ×2 (09:39→20:41)
[2017-09-04] MEDS: DOCUSATE SODIUM 100 MG CAP PO SCH ×2 (09:39→20:41)
[2017-09-04] MEDS: ENALAPRIL MALEATE 10 MG TAB PO SCH ×2 (09:40→20:41)
[2017-09-04] MEDS: UMECLIDINIUM 62.5 MCG/VILANTEROL 25 MCG INHALER INH SCH (09:40)
[2017-09-04] MEDS: FLUTICASONE PROPIONATE 50 MCG/ACT 16 GM NASAL SPRAY NASAL SCH (09:41)
--- NOTE | 2017-09-04 09:57 | HHI.PR ---
Subjective Remarks Follow-up renal insufficiency, pneumothorax. The patient had a chest tube placed yesterday. He states that his breathing is much improved. He reports only minimal pain at the chest tube site. No nausea or vomiting. Objective Vitals Vital Signs Date Time Temp Pulse Resp B/P (MAP) Pulse Ox O2 Delivery O2 Flow Rate FiO2 09/04/17 08:00 95.3 78 17 164/87 (112) 95 09/04/17 03:24 18 09/04/17 00:00 98.1 86 17 131/81 (98) 93 09/03/17 20:32 96 Nasal Cannula 2.00 09/03/17 20:00 97.9 89 17 173/87 (115) 97 09/03/17 16:00 97.3 83 17 156/77 (103) 95 09/03/17 12:00 96.7 77 18 168/80 (109) 91 I/O 09/03/17 09/03/17 09/03/17 09/04/17 09/04/17 09/04/17 07:00 15:00 23:00 07:00 15:00 23:00 Intake Total 916 ml 100 ml 625 ml 240 ml Output Total 2000 ml 975 ml 1306 ml Balance -1084 ml 100 ml -350 ml -1066 ml Intake Oral 240 ml 625 ml 240 ml IV Total 676 ml 100 ml Output Urine Total 2000 ml 975 ml 1300 ml Chest Tube Drainage Total 6 ml # Bowel Movements 0 Result Diagram: 09/03/17 0605 09/04/17 0738 Imaging Last Impressions Chest X-Ray 09/04/17 0000 Signed Impressions: Service Date/Time: August 06:37 - CONCLUSION: 1. No evidence of right-sided pneumothorax. 2. 1 cm right suprahilar nodule. 3. Stable right chest tube. 4. Mild right basilar opacity characteristic of airspace disease and small effusions. James Vasquez MD Objective Remarks General: No acute distress. Heart: Regular rate and rhythm. No murmur. Lungs: Clear to auscultation bilaterally. No wheezes, rales, or rhonchi. Breathing is nonlabored. Abdomen: Soft, nontender, nondistended. Extremities: No lower extremity edema. Psych: Alert and oriented. Procedures 09/02/17 right nephrectomy Urinary Catheter: No Vascular Central Line Catheter: No A/P Problem List: (1) Renal mass, right ICD Code: N28.89 - Other specified disorders of kidney and ureter (2) Hypertension ICD Code: I10 - Essential (primary) hypertension (3) Hyperlipidemia ICD Code: E78.5 - Hyperlipidemia, unspecified (4) Coronary artery disease ICD Code: I25.10 - Atherosclerotic heart disease of [place] coronary artery without angina pectoris (5) Acute kidney injury ICD Code: N17.9 - Acute kidney failure, unspecified Assessment and Plan 1. Right renal mass: Status post right radical robotic nephrectomy. Management per urology. 2. Acute kidney injury: BUN and creatinine trending up. Continue IV fluids. Appreciate nephrology recommendations. Labs are pending this morning. 3. Hypertension: Continue metoprolol, enalapril, amlodipine. 4. COPD: Oxygen as needed. Bronchodilators. 5. Coronary artery disease: Asymptomatic. Continue home medications. 6. Hyperlipidemia: Continue statin. 7. Spontaneous pneumothorax: Chest tube in place. Appreciate pulmonology recommendations. Respiratory status much improved. 8. DVT prophylaxis: DENNYS Dias. Javon Alvarez MD Sep 04, 2017 09:57
--- NOTE | 2017-09-04 12:19 | HHI.PR ---
Subjective Subjective Notes Ambulating in room No shortness of breath Objective Vitals/I&O Vital Signs Date Time Temp Pulse Resp B/P (MAP) Pulse Ox O2 Delivery O2 Flow Rate FiO2 09/04/17 12:00 98.0 80 17 152/91 (111) 94 09/03/17 20:32 Nasal Cannula 2.00 09/03/17 08:30 21 Labs Laboratory Tests Test 09/04/17 07:38 Blood Urea Nitrogen 16 Creatinine 1.58 Random Glucose 103 Calcium Level 8.5 Sodium Level 136 Potassium Level 4.4 Chloride Level 107 Carbon Dioxide Level 24.9 Anion Gap 4 Estimat Glomerular Filtration Rate 53 Radiology Last 48 hours Impressions Chest X-Ray 09/03/17 0000 Signed Impressions: Service Date/Time: Sunday, September 03, 2017 13:59 - CONCLUSION: Right pneumothorax as described above. Cyril Lira MD FACR Cardiovascular: Regular Lungs: Clear Abdomen: Other (lap sites c/d/i ) Extremities: No edema Narrative Exam RIGHT chest tube in place without complications A/P Assessment and Plan 66 year old male POD2 RIGHT radical nephrectomy; with RIGHT PTX -s/p IR placed chest tube -Continue CT to wall suction -CXR today shows no PTX -Regular diet -Pain control -We will be available if needed Attending Statement s/p IR chest tube cxr no ptx continue sxn attempt h2o seal Ir to remove c.t. if tolerate h2o seal trial Attestation The exam, history, and the medical decision-making described in the above note were completed with the assistance of the mid-level provider. I reviewed and agree with the findings presented. I attest that I had a [id number] encounter with the patient on the same day, and personally performed and documented my assessment and findings in the medical record. Niesha Mcgarry Sep 04, 2017 12:19 Haile Arriaga MD Sep 07, 2017 18:32
[2017-09-04] MEDS: PANTOPRAZOLE SODIUM 40 MG VIAL IV PUSH SCH (12:41)
--- NOTE | 2017-09-04 13:04 | RADRPT ---
EXAM DATE/TIME: 09/04/2017 12:41 [facility] COMPARISON: CHEST EXPIRATION ONLY, September 04, 2017, 6:37. INDICATIONS : Shortness of breath. MEDICAL HISTORY : Renal cell carcinoma. Cardiovascular disease. SURGICAL HISTORY : Nephrectomy, right. Coronary artery stent. chest tube ENCOUNTER: Subsequent ACUITY: 3 days PAIN SCORE: 0/10 LOCATION: Bilateral chest FINDINGS: The right chest tube remains in place. There is no definite right pneumothorax. There's been no signi ficant changes with the appearance of the heart or lungs compared to the prior examination. CONCLUSION: No significant interval change. No definite right pneumothorax. Giorgi Falk MD on September 04, 2017 at 13:00 Board Certified Radiologist. This report was verified electronically.
--- NOTE | 2017-09-04 13:42 | RADRPT ---
EXAM DATE/TIME: 09/03/2017 17:17 [facility] COMPARISON: No previous studies available for comparison. INDICATIONS : Patient with a history of pneumothorax. MEDICAL HISTORY : HTN COPD SURGICAL HISTORY : Right nephrectomy Cardiac cath ENCOUNTER: Initial ACUITY: 1 day PAIN SCORE: 6/10 LOCATION: Right chest FLUORO TIME: 2.4 minutes IMAGE SERIES: 1 MEDICATION(S): 1.) 100 mcg fentanyl (Sublimaze) IV DEVICE(S): 1.) 10 [place] non-locking catheter PROCEDURE : 1. Fluoroscopically guided chest tube placement. 2. Conscious sedation with continuous EKG and oximetry monitoring. The risks, benefits and alternatives to the procedure were explained and verbal and written consent w as obtained. The site was prepped in sterile fashion. Full sterile technique was used, including ca p, mask, sterile gloves and gown and a large sterile sheet. Hand hygiene and 2% chlorhexidine and/or betadine/alcohol prep was utilized per protocol for cutaneous antisepsis. The skin and subcutaneous tissues were infiltrated with local anesthetic solution. With fluoroscopic guidance the chest was punctured between the first and second interspace and the pr escribed catheter was placed in the lung apex. Wall suction was applied. Post procedure images demon strate satisfactory position of the tube. The catheter was sutured in place and a Percu-Stay was lennox lied. Conscious sedation was performed with the prescribed dosages and duration as above in the presence of an independent trained radiology nurse to assist in the monitoring of the patient. EKG and oximetry remained stable throughout the procedure. The patient tolerated the procedure well and there were n o complications. The patient was sent to post anesthesia recovery in stable condition. CONCLUSION: Uncomplicated chest tube placement as above. Carroll Frederick MD on September 04, 2017 at 13:40 Board Certified Radiologist. This report was verified electronically.
--- NOTE | 2017-09-04 14:59 | RADRPT ---
EXAM DATE/TIME: 09/04/2017 14:04 [facility] COMPARISON: CHEST EXPIRATION ONLY, September 04, 2017, 6:37. INDICATIONS : Post chest tube removal. MEDICAL HISTORY : Chronic obstructive pulmonary disease. Hypertension SURGICAL HISTORY : Right nephrectomy.Cardiac cath ENCOUNTER: Subsequent ACUITY: 2 days PAIN SCORE: 0/10 LOCATION: Bilateral chest FINDINGS: A single frontal expiratory view of the chest was performed. Lungs are symmetrically aerated with no pneumothorax post chest tube removal. However, there is persistent right basilar consolidation with a ssociated effusion which appears slightly worse when compared to prior. Left lung remains clear. Hear t size is normal. Mild dextroscoliosis of the dorsal spine. Osseous structures are otherwise intact. There are some degenerative changes in the right a.c. joint with deformity of the distal right clavic le possibly representing an old fracture injury. CONCLUSION: 1. No pneumothorax post chest tube removal. 2. Right basilar consolidation/effusion actually appears slightly worse when compared to the prior ex am. Left lung remains clear. Carroll Frederick MD on September 04, 2017 at 14:55 Board Certified Radiologist. This report was verified electronically.
--- NOTE | 2017-09-04 16:03 | RADRPT ---
EXAM DATE/TIME: 09/04/2017 00:00 [facility] COMPARISON: No previous studies available for comparison. INDICATIONS : pneumothorax DEVICE(S): 1.) Vaseline occlusive dressing PROCEDURE : Chest tube removal. Using aseptic technique the previously placed chest tube was easily removed in one piece and Vaseline gauze and sterile dressing was applied. Chest radiograph is to be obtained. CONCLUSION: Uncomplicated chest tube removal. Carroll Frederick MD on September 04, 2017 at 16:02 Board Certified Radiologist. This report was verified electronically.
--- NOTE | 2017-09-04 16:56 | HHI.PR ---
Subjective Patient symptoms today feels better. breathing improved. tolerating regular diet. Ambulating. Denies CP /Fevers. Minimal Flatus. Voiding well. Objective Vital Signs Vital Signs Date Time Temp Pulse Resp B/P (MAP) Pulse Ox O2 Delivery O2 Flow Rate FiO2 09/04/17 16:00 99.5 83 17 159/87 (111) 93 09/04/17 12:00 98.0 80 17 152/91 (111) 94 09/04/17 08:58 96 Nasal Cannula 2.00 09/04/17 08:00 95.3 78 17 164/87 (112) 95 09/04/17 03:24 18 09/04/17 00:00 98.1 86 17 131/81 (98) 93 09/03/17 20:32 96 Nasal Cannula 2.00 09/03/17 20:00 97.9 89 17 173/87 (115) 97 Intake & Output 09/04/17 09/04/17 07:00 19:00 Intake Total 240 ml Output Total 1306 ml Balance -1066 ml Intake Oral 240 ml Output Urine Total 1300 ml Chest Tube Drainage Total 6 ml Result Diagram: 09/03/17 0605 09/04/17 0738 Imaging Last 24 hours Impressions Tunnelled Chest Tube Removal 09/04/17 0000 Signed Impressions: Service Date/Time: August 00:00 - CONCLUSION: Uncomplicated chest tube removal. Carroll Frederick MD Chest X-Ray 09/04/17 0000 Signed Impressions: Service Date/Time: August 14:04 - CONCLUSION: 1. No pneumothorax post chest tube removal. 2. Right basilar consolidation/effusion actually appears slightly worse when compared to the prior exam. Left lung remains clear. Carroll Frederick MD Chest X-Ray 09/04/17 0000 Signed Impressions: Service Date/Time: August 12:41 - CONCLUSION: No significant interval change. No definite right pneumothorax. Giorgi Falk MD Chest X-Ray 09/04/17 0000 Signed Impressions: Service Date/Time: August 06:37 - CONCLUSION: 1. No evidence of right-sided pneumothorax. 2. 1 cm right suprahilar nodule. 3. Stable right chest tube. 4. Mild right basilar opacity characteristic of airspace disease and small effusions. James Vasquez MD Objective Remarks NAD. A/O x 3 non labored respirations RRR abd soft, mild distention, NT. inc c/d/i Ext NT. no c/c/e Procedures Right Robotic Radical Nephrectomy, 09/02/2017 Medications and IVs Current Medications Medications (Trade) Dose Ordered Sig/Jake Route Start Time Stop Time Status Last Admin (Lopressor) 25 mg CELL RELINER PRN PO 09/02/17 07:00 09/05/17 06:59 (Betadine 5% Antisepsis Kit) 1 applic CELL RELINER PRN EACH NARE 09/02/17 07:00 09/05/17 06:59 (Chlorhexidine 2% Cloth) 3 pack CELL RELINER PRN TOPICAL 09/02/17 07:00 09/05/17 06:59 (NovoLIN R INJ) See Protocol Table ... CELL RELINER PRN SQ 09/02/17 07:00 09/05/17 06:59 (Colace) 100 mg BID PO 09/02/17 21:00 09/04/17 09:39 (Protonix Inj) 40 mg Q24H IV PUSH 09/02/17 14:00 09/04/17 12:41 (Zofran Inj) 4 mg Q6HR PRN IV PUSH 09/02/17 11:45 (Morphine Inj) 4 mg Q3H PRN IV PUSH 09/02/17 11:45 Sodium Chloride 1,000 ml @ 125 mls/hr Q8H IV 09/02/17 11:45 09/04/17 12:40 (Norvasc) 10 mg DAILY PO 09/03/17 09:00 09/04/17 09:39 (Lipitor) 40 mg HS PO 09/02/17 21:00 09/03/17 20:20 (Vasotec) 20 mg BID PO 09/03/17 09:00 09/04/17 09:40 (Lopressor) 25 mg BID PO 09/03/17 09:00 09/04/17 09:39 (Flonase Nasir Spr) 1 spray DAILY NASAL 09/03/17 09:00 09/04/17 09:41 (Proair Hfa Inh) 1 puff QID PRN INH 09/02/17 16:00 (Percocet 5-325 Mg) 2 tab Q4H PRN PO 09/03/17 12:30 09/04/17 15:38 (Percocet 5-325 Mg) 1 tab Q4H PRN PO 09/03/17 12:30 (Duoneb Neb) 1 ampule TID NEB INH 09/03/17 20:00 09/04/17 12:36 Assessment and Plan Assessment and Plan POD #2 s/p Right Robotic Radical Nephrectomy with Right PTx s/p chest tube with removal earlier today -Clinically doing well. -Pain controlled -Regular diet -BMP in A.M. -CXR in A.M. -Possible d/c tomorrow -Appreciate all other service assistance. David Ruff MD Sep 04, 2017 16:56
[2017-09-04] MEDS: ATORVASTATIN 40 MG TAB PO SCH (20:41)
--- NOTE | 2017-09-04 21:44 | HHI.NPPN ---
Subjective History of Present Illness 66-year-old male with past medical history of hypertension, hyperlipidemia, history of COPD, and ischemic heart disease who was admitted for elective right nephrectomy for possible right renal mass. I was called to see the patient because of elevated creatinine. Additional Remarks Patient is alert,now feeling better, breathing improving. Review of Systems General Constitutional: Fatigue Respiratory Lungs: SOB Cardiovascular Cardiac: FRAGOSO Objective Data Data 09/04/17 09/05/17 19:00 07:00 Intake Total 2536 ml Balance 2536 ml Intake Oral 960 ml IV Total 1576 ml # Voids 6 # Bowel Movements 0 Vital Signs Date Time Temp Pulse Resp B/P (MAP) Pulse Ox O2 Delivery O2 Flow Rate FiO2 09/04/17 20:00 97.9 92 19 149/74 (99) 91 09/04/17 16:00 99.5 83 17 159/87 (111) 93 09/04/17 12:00 98.0 80 17 152/91 (111) 94 09/04/17 08:58 96 Nasal Cannula 2.00 09/04/17 08:00 95.3 78 17 164/87 (112) 95 09/04/17 03:24 18 09/04/17 00:00 98.1 86 17 131/81 (98) 93 -: 09/03/17 0605 09/04/17 0738 Physical Exam General Appearance: No Acute Distress, Comfortable Eyes Eye Exam: Pupils Equal Throat Throat Exam: Oral Mucosa [place] & Moist Pulmonary Resp Exam: Breath Sounds Equal, No Distress, Decreased Bases, Diminished Breath Sounds Gastrointestinal/Abdomen GI Exam: Soft, Bowel Sounds Present, Distended Extremeties Extremities Exam: Trace Edema Neurologic Neuro Exam: Alert, Awake, Oriented Psychiatric Psych Exam: Appropriate Responses Assessment/Plan Problem List: (1) Coronary artery disease ICD Codes: I25.10 - Atherosclerotic heart disease of [place] coronary artery without angina pectoris (2) Hyperlipidemia ICD Codes: E78.5 - Hyperlipidemia, unspecified (3) Hypertension ICD Codes: I10 - Essential (primary) hypertension (4) Pneumothorax on right ICD Codes: J93.9 - Pneumothorax, unspecified (5) Renal mass, right ICD Codes: N28.89 - Other specified disorders of kidney and ureter (6) Acute kidney injury ICD Codes: N17.9 - Acute kidney failure, unspecified Plan Patient has Rt. Nephrectomy for renal mass. Develop Pneumothorax. Chest tube is removed already. Creatinine is slightly better. Possibly this Creatinine will be close to his baseline. Avoid Nephrotoxins. Follow the BMP. Sally Serrano MD Sep 04, 2017 21:44
[2017-09-05] VITALS: BP 145/80; PULSE 84; RESP 18; TEMP 97; O2SAT 96
[2017-09-05 04:00] VITALS: BP 161/82; PULSE 81; RESP 20; TEMP 98; O2SAT 95
[2017-09-05] MEDS: oxyCODONE/ACETAMINOPHEN 5 MG/325 MG TAB PO PRN (05:06)
[2017-09-05] MEDS: SODIUM CHLOR 0.9% 1000 ML INJ 1,000 ML IV SCH ×2 (05:06→11:55)
[2017-09-05 07:42] LABS: AUTOMATED NEUTROPHIL # 4.9 TH/MM3 (1.8-7.7); BASOPHIL % 0.2 % (0.0-2.0); EOSINOPHIL # 0.2 TH/MM3 (0-0.4); EOSINOPHIL % 3.5 % (0.0-4.0); HEMATOCRIT 35.9 % (39.0-51.0); HEMO FLAGS DIFF FINAL; LYMPH % 11.1 % (9.0-44.0); LYMPHOCYTE # 0.7 TH/MM3 (1.0-4.8); MEAN CELL VOLUME 85.4 FL (80.0-100.0); MEAN CORPUSCULAR HEMOGLOBIN 28.5 PG (27.0-34.0); MEAN CORPUSCULAR HGB CONC 33.4 % (32.0-36.0); MONO % 9.8 % (0.0-8.0); NEUT % 75.4 % (16.0-70.0); PLATELET COUNT 150 TH/MM3 (150-450); RED BLOOD COUNT 4.21 MIL/MM3 (4.50-5.90); RED CELL DISTRIBUTION WIDTH 13.7 % (11.6-17.2); WHITE BLOOD COUNT 6.5 TH/MM3 (4.0-11.0)
--- NOTE | 2017-09-05 07:43 | RADRPT ---
EXAM DATE/TIME: 09/05/2017 07:27 [facility] COMPARISON: CHEST EXPIRATION ONLY, September 04, 2017, 14:04. INDICATIONS : Evaluate resolved pneumothorax. MEDICAL HISTORY : Renal cell carcinoma. Cardiovascular disease. SURGICAL HISTORY : Nephrectomy, right. Coronary artery stent. chest tube ENCOUNTER: Subsequent ACUITY: 4 - 6 days PAIN SCORE: 0/10 LOCATION: Bilateral chest FINDINGS: PA and lateral views of the chest demonstrate small right pleural effusion. Right basilar density. Le ft lung clear. No pneumothorax.. The cardiomediastinal contours are unremarkable. Osseous structure s are intact. CONCLUSION: 1. Small right pleural effusion and right basilar density likely atelectasis. Clovis Henderson MD on September 05, 2017 at 7:41 Board Certified Radiologist. This report was verified electronically.
[2017-09-05 07:53] LABS: BICARBONATE 24.2 MEQ/L (21.0-32.0); POTASSIUM 4.5 MEQ/L (3.5-5.1)
[2017-09-05 08:00] VITALS: BP 176/86; PULSE 77; RESP 17; TEMP 96.1; O2SAT 94
[2017-09-05] MEDS: RESP: ALBUTEROL 2.5 MG/IPRATROPIUM 0.5 MG NEB (SCH) INH ×2 (08:37→13:37)
[2017-09-05 08:39] VITALS: O2SAT 97
[2017-09-05] MEDS: DOCUSATE SODIUM 100 MG CAP PO SCH (09:45)
[2017-09-05] MEDS: ENALAPRIL MALEATE 10 MG TAB PO SCH (09:45)
[2017-09-05] MEDS: METOPROLOL TARTRATE 25 MG TAB PO SCH (09:45)
[2017-09-05] MEDS: UMECLIDINIUM 62.5 MCG/VILANTEROL 25 MCG INHALER INH SCH (09:47)
[2017-09-05] MEDS: FLUTICASONE PROPIONATE 50 MCG/ACT 16 GM NASAL SPRAY NASAL SCH (09:47)
--- NOTE | 2017-09-05 10:56 | HHI.PR ---
Subjective Remarks Follow-up pneumothorax, renal insufficiency. The patient states that he feels much better today. He denies chest pain or dyspnea. He has been ambulatory without difficulty. He wants to go home. Objective Vitals Vital Signs Date Time Temp Pulse Resp B/P (MAP) Pulse Ox O2 Delivery O2 Flow Rate FiO2 09/05/17 08:39 97 Nasal Cannula 2.00 09/05/17 08:00 96.1 77 17 176/86 (116) 94 09/05/17 06:08 18 09/05/17 04:00 98.0 81 20 161/82 (108) 95 09/05/17 00:00 97.0 84 18 145/80 (101) 96 09/04/17 20:15 94 09/04/17 20:00 97.9 92 19 149/74 (99) 91 09/04/17 16:00 99.5 83 17 159/87 (111) 93 09/04/17 12:00 98.0 80 17 152/91 (111) 94 I/O 09/04/17 09/04/17 09/04/17 09/05/17 09/05/17 09/05/17 07:00 15:00 23:00 07:00 15:00 23:00 Intake Total 240 ml 2536 ml 220 ml Output Total 1306 ml 500 ml Balance -1066 ml 2536 ml -280 ml Intake Oral 240 ml 960 ml 220 ml IV Total 1576 ml Output Urine Total 1300 ml 500 ml Chest Tube Drainage Total 6 ml # Voids 6 # Bowel Movements 0 0 Result Diagram: 09/05/17 0600 09/05/17 06 Imaging Last Impressions Chest X-Ray 09/05/17 06 Signed Impressions: Service Date/Time: Tuesday, September 05, 2017 07:27 - CONCLUSION: 1. Small right pleural effusion and right basilar density likely atelectasis. Clovis Henderson MD Tunnelled Chest Tube Removal 09/04/17 0000 Signed Impressions: Service Date/Time: August 00:00 - CONCLUSION: Uncomplicated chest tube removal. Carroll Frederick MD Chest Tube Insertion 09/03/17 0000 Signed Impressions: Service Date/Time: Sunday, September 03, 2017 17:17 - CONCLUSION: Uncomplicated chest tube placement as above. Carroll Frederick MD Objective Remarks General: No acute distress. Heart: Regular rate and rhythm. No murmur. Lungs: Clear to auscultation bilaterally. No wheezes, rales, or rhonchi. Breathing is nonlabored. Abdomen: Soft, nontender, nondistended. Extremities: No lower extremity edema. Psych: Alert and oriented. Procedures 09/02/17 right nephrectomy 09/03/17 chest tube placement Urinary Catheter: No Vascular Central Line Catheter: No A/P Problem List: (1) Renal mass, right ICD Code: N28.89 - Other specified disorders of kidney and ureter (2) Hypertension ICD Code: I10 - Essential (primary) hypertension (3) Hyperlipidemia ICD Code: E78.5 - Hyperlipidemia, unspecified (4) Coronary artery disease ICD Code: I25.10 - Atherosclerotic heart disease of [place] coronary artery without angina pectoris (5) Acute kidney injury ICD Code: N17.9 - Acute kidney failure, unspecified Assessment and Plan 1. Right renal mass: Status post right radical robotic nephrectomy. Management per urology. 2. Acute kidney injury: BUN and creatinine trending down. Appreciate nephrology recommendations. 3. Hypertension: Continue metoprolol, enalapril, amlodipine. 4. COPD: Oxygen as needed. Bronchodilators. 5. Coronary artery disease: Asymptomatic. Continue home medications. 6. Hyperlipidemia: Continue statin. 7. Spontaneous pneumothorax: Resolved. Chest tube removed yesterday. 8. DVT prophylaxis: DENNYS Dias. Discharge Planning Discharge home when cleared by nephrology, urology. Javon Alvarez MD Sep 05, 2017 10:56
[2017-09-05 12:00] VITALS: BP 149/81; PULSE 79; RESP 17; TEMP 96.7; O2SAT 93
--- NOTE | 2017-09-05 12:59 | HHI.DS ---
Discharge Summary Admission Date Sep 02, 2017 at 12:30 Discharge Date: Sep 05, 2017 Admitting Diagnosis Right Renal Mass. (1) Renal mass, right Diagnosis: Principal ICD Codes: N28.89 - Other specified disorders of kidney and ureter (2) Hypertension ICD Codes: I10 - Essential (primary) hypertension (3) Hyperlipidemia ICD Codes: E78.5 - Hyperlipidemia, unspecified (4) Coronary artery disease ICD Codes: I25.10 - Atherosclerotic heart disease of [place] coronary artery without angina pectoris (5) Acute kidney injury ICD Codes: N17.9 - Acute kidney failure, unspecified CBC/BMP: 09/05/17 0600 09/05/17 0600 Significant Findings Laboratory Tests Test 09/03/17 06:05 09/04/17 07:38 09/05/17 06:00 Creatinine 1.71 MG/DL (0.60-1.30) 1.58 MG/DL (0.60-1.30) 1.44 MG/DL (0.60-1.30) Random Glucose 130 MG/DL (74-106) Estimat Glomerular Filtration Rate 49 ML/MIN (>89) 53 ML/MIN (>89) 59 ML/MIN (>89) Anion Gap 4 MEQ/L (5-15) Red Blood Count 4.21 MIL/MM3 (4.50-5.90) Hemoglobin 12.0 GM/DL (13.0-17.0) Hematocrit 35.9 % (39.0-51.0) Neutrophils (%) (Auto) 75.4 % (16.0-70.0) Monocytes (%) (Auto) 9.8 % (0.0-8.0) Lymphocytes # (Auto) 0.7 TH/MM3 (1.0-4.8) Calcium Level 8.3 MG/DL (8.5-10.1) Hospital Course 66 yo male h/o COPD was admitted following a Right Robotic Radical Nephrectomy. On POD#1, he became SOB, mainly on exertion. CXR showed a spontaneous pneumothorax. A chest tube was placed and he immediately felt better. The next day, the chest tube was removed. He has had minimal abdominal pain since the surgery. Voiding on own. Ambulating well. His Creatinine peaked at 1.77, but has come down to 1.44. He was discharged home on POD#3. Pt Condition on Discharge: Fair Discharge Disposition: Discharge Home Discharge Instructions DIET: Follow Instructions for: Heart Healthy Diet Activities you can perform: Shower Only-No Bath Additional Activity Instructio: No heavylifting greater than 15 lbs x 4 weeks No strenuous activity x 4 weeks No driving x 2 weeks New Medications: Docusate Sodium (Dok) 100 Mg Cap 100 MG PO BID for Constipation for 14 Days, #28 CAP Oxycodone HCl/Acetaminophen (Oxycodone-Acetaminophen 5-325) 5 Mg-325 Mg Tablet 2 TAB PO Q4H PRN for PAIN SCALE 7 TO 10 for 5 Days, #60 TAB David Ruff MD Sep 05, 2017 12:59
[2017-09-05] MEDS: PANTOPRAZOLE SODIUM 40 MG VIAL IV PUSH SCH (14:51)
--- NOTE | 2017-09-05 15:26 | HHI.NPPN ---
Subjective History of Present Illness 66-year-old male with past medical history of hypertension, hyperlipidemia, history of COPD, and ischemic heart disease who was admitted for elective right nephrectomy for possible right renal mass. I was called to see the patient because of elevated creatinine. Additional Remarks Patient is alert,now feeling better, breathing is better, started eating, not in distress. Review of Systems General Constitutional: Fatigue Respiratory Lungs: SOB Cardiovascular Cardiac: FRAGOSO Objective Data Data Vital Signs Date Time Temp Pulse Resp B/P (MAP) Pulse Ox O2 Delivery O2 Flow Rate FiO2 09/05/17 12:00 96.7 79 17 149/81 (103) 93 09/05/17 08:39 97 Nasal Cannula 2.00 09/05/17 08:00 96.1 77 17 176/86 (116) 94 09/05/17 06:08 18 09/05/17 04:00 98.0 81 20 161/82 (108) 95 09/05/17 00:00 97.0 84 18 145/80 (101) 96 09/04/17 20:15 94 09/04/17 20:00 97.9 92 19 149/74 (99) 91 09/04/17 16:00 99.5 83 17 159/87 (111) 93 -: 09/05/17 0600 09/05/17 0600 Physical Exam General Appearance: No Acute Distress, Comfortable Eyes Eye Exam: Pupils Equal Throat Throat Exam: Oral Mucosa [place] & Moist Pulmonary Resp Exam: Breath Sounds Equal, No Distress, Decreased Bases, Diminished Breath Sounds Gastrointestinal/Abdomen GI Exam: Soft, Bowel Sounds Present, Distended Extremeties Extremities Exam: Trace Edema Neurologic Neuro Exam: Alert, Awake, Oriented Psychiatric Psych Exam: Appropriate Responses Assessment/Plan Problem List: (1) Coronary artery disease ICD Codes: I25.10 - Atherosclerotic heart disease of [place] coronary artery without angina pectoris (2) Hyperlipidemia ICD Codes: E78.5 - Hyperlipidemia, unspecified (3) Hypertension ICD Codes: I10 - Essential (primary) hypertension (4) Pneumothorax on right ICD Codes: J93.9 - Pneumothorax, unspecified (5) Renal mass, right ICD Codes: N28.89 - Other specified disorders of kidney and ureter (6) Acute kidney injury ICD Codes: N17.9 - Acute kidney failure, unspecified Plan Patient has Rt. Nephrectomy for renal mass. Develop Pneumothorax. Chest tube is removed already. Creatinine is now 1.4, Possibly this Creatinine will be close to his baseline. Avoid Nephrotoxins. Told to avoid NSAID and dehydration. For D/C, to follow with me in 1 month. Problem Qualifiers (1) Hypertension: Qualified Codes: I10 - Essential (primary) hypertension Sally Serrano MD Sep 05, 2017 15:25
== END 2017-09-05 16:19 | disposition home or self-care (01) | DRG 657 ==
LOC: HSDC 06:29 → HSDI 11:36 → OBSVTOIN 12:30 → N07A 15:11
PROVIDERS: ADMIT Urology; ATTEND Urology
PROC: 8E0W4CZ Robotic Assisted Procedure of Trunk Region, Percutaneous Endoscopic Approach (ICD-10-PCS; 2017-09-02)
PROC: 0TB04ZZ Excision of Right Kidney, Percutaneous Endoscopic Approach (ICD-10-PCS; principal; 2017-09-02 08:28)
PROC: 0W9930Z Drainage of Right Pleural Cavity with Drainage Device, Percutaneous Approach (ICD-10-PCS; 2017-09-03)
DX: C64.9 Malignant neoplasm of unspecified kidney, except renal pelvis (principal); J93.83 Other pneumothorax; N17.9 Acute kidney failure, unspecified; I10 Essential (primary) hypertension; E78.5 Hyperlipidemia, unspecified; I25.10 Atherosclerotic heart disease of native coronary artery without angina pectoris; J44.9 Chronic obstructive pulmonary disease, unspecified; Z87.891 Personal history of nicotine dependence; Z95.5 Presence of coronary angioplasty implant and graft; R91.1 Solitary pulmonary nodule
CPT/HCPCS: 32557; 71010; 71020; 80048; 85025; 85027; 85610; 86850; 86900; 86901; 86920; 88307; 88341; 88342; 94150; 94640; 94664; C1729; C1769; C9113; J0131; J0690; J1100; J1170; J2150; J2250; J2370; J2405; J3010; J7030